=== PATIENT | male | born 1980 | race Caucasian/White ===

== ENCOUNTER 2021-09-02 07:24 | Outpatient (REF) | payer OTHER, SELFPAY ==
--- NOTE | ~2021-09-02 | CT_ITS ---
EXAMINATION: CT SINUS WITHOUT CONTRAST CLINICAL INFORMATION: Deviated septum. COMPARISON: None TECHNIQUE: 2 mm thin axial and reformatted 2 mm thin sagittal and coronal images of sinuses were obtained. This CT examination was performed using dose optimization techniques as appropriate, variously including the following: *Automated exposure control *Adjustment of mA and/or kV according to patient size (this includes techniques or standardized protocols for targeted exams where dose is matched to indication/reason for exam; i.e. extremities or head) *Use of iterative reconstruction technique DLP: 93 mGy-cm FINDINGS: FRONTAL SINUSES AND DRAINAGE PATHWAYS: The frontal sinuses are hypoplastic and not visualized. The ostiomeatal complex appears patent. MAXILLARY SINUSES AND DRAINAGE PATHWAYS: There is minimal mucoperiosteal thickening along the roof of bilateral maxillary sinuses. There is a small polyp or retention cyst in the floor of the left maxillary sinus. No air-fluid levels seen. The infundibula are patent. ETHMOID SINUSES: Normal. The ethmoid roofs are symmetric, with olfactory fossa depth of 0.3 on the right and 0.4 on the left. SPHENOID SINUSES AND DRAINAGE PATHWAYS: There is a mild mucoperiosteal thickening right sphenoid sinus. The left sphenoid sinus is clear. The sphenoid ostia are patent. The carotid canals are covered by bone. NASAL CAVITY/NASOPHARYNX: The nasal cavity is clear. There is hypertrophic right middle and inferior turbinates, likely part of the physiological cycle. There is no nasal septal deviation/spurring. The nasopharynx is symmetric. ADDITIONAL RELEVANT FINDINGS: No periapical disease is seen. The TMJs articulate normally. The orbits and skull base soft tissues are unremarkable. The middle ear cavities and mastoid air cells are clear. Limited evaluation demonstrates no acute intracranial findings. CT/CT sinus wo con IMPRESSION: Minimal bilateral maxillary and right sphenoid sinus inflammatory changes. There is a small polyp or retention cyst, left maxillary sinus.
== END 2021-09-02 07:25 | disposition home or self-care (01) ==
LOC: HO.CT 07:24
PROVIDERS: Visit Provider Otolaryngology
DX: J34.2 Deviated nasal septum (principal); J32.8 Other chronic sinusitis; J33.9 Nasal polyp, unspecified
CPT/HCPCS: 70486

== ENCOUNTER 2024-12-24 07:20 | Emergency (ER) | payer BC, SELFPAY ==
--- OUTSIDE RECORDS SUMMARY | 2023-08-31 09:00 | XMS_ITS ---
Author Organization [facility] Address [address] [place] [id number] Care Team Providers Care Vending Stand Supervisor Name Role Phone Roosevelt TIJERINA, [place] Primary Care Provider Unav ailable Sergio Bangura Unavailable [phone] Madison Obando Unavailable [phone] Problems No Known Problems Encounters Encounter Location Date Provider Diagnosis [facility] [address] [place] [address] 08/31/2023 Madison Obando Plan Of Treatment No Information Progress Notes * Pranay ORRDOB:1980 (44 yo M)Acc No.[id number]:08/31/2023 Progress Notes Patient: Pranay BURKS Provider: Sarahi Obando DPM :1980 A ge:42 Y S ex:Male Date:08/31/2023 Address:[address] [place], [place] [id number] Pcp:Mich Albert MD Subjective: * Chief Complaints: * * Medical History: Objective: * Vitals: Assessment: Plan: * Treatment: * Images: * The named appointment provid er may or may not be the originator of this progress note, and it is not deemed complete until electronically signed by the appointment provider. Sign off status: Pending * Provider: Sarahi Obando DPM Date: 0 08/31/2023 Generated for Ranjeet preston/James/eTransmitting on: 0 12/24/2024 07:49 AM EDT
--- OUTSIDE RECORDS SUMMARY | 2023-09-08 09:00 | XMS_ITS ---
Author Organization [facility] Address [address] [place] [address] Care Team Providers Care Replanter Name Role Phone Roosevelt TIJERINA, [place] Primary Care Provider Unav ailable Sergio Bangura Unavailable [phone] Problems No Known Problems Encounters Encounter Location Date Provider Diagnosis [facility] [address] [address] 09/08/2023 Sergio Bangura Plan Of Treatment No Information Progress Notes * Pranay ORRDOB:1980 (44 yo M)Acc No.[id number]:09/08/2023 Progress Notes Patient: Pranay BURKS Provider: Dre Bangura DPM :1980 A ge:43 Y S ex:Male Date:09/08/2023 Address:[address] [place], [place] [id number] Pcp:Mich Albert MD Subjective: * Chief Complaints: * * Medical History: Objective: * Vitals: Assessment: Plan: * Treatment: * Images: * The named appointment provid er may or may not be the originator of this progress note, and it is not deemed complete until electronically signed by the appointment provider. Sign off status: Pending * Provider: Dre Bangura DPM Date: 09/08/2023 Generated for Ranjeet preston/James/Kitty[place]itting on: 12/24/2024 07:49 AM EDT
--- NOTE | ~2024-12-24 | CT_ITS ---
EXAMINATION: CT ABDOMEN AND PELVIS WITH CONTRAST CLINICAL INFORMATION: Right upper quadrant abdominal pain. COMPARISON: Correlated to ultrasound abdomen limited December 24, 2024. TECHNIQUE: Multidetector volumetric images were obtained from the superior aspect of the liver through the pubic symphysis following administration 85 mL of Omnipaque 350 intravenous contrast. Sagittal and coronal reformatted images were obtained on the technologist's workstation. Oral contrast: No This CT examination was performed using dose optimization techniques as appropriate, variously including the following: *Automated exposure control *Adjustment of mA and/or kV according to patient size (this includes techniques or standardized protocols for targeted exams where dose is matched to indication/reason for exam; i.e. extremities or head) *Use of iterative reconstruction technique DLP: 539 mg centimeter. FINDINGS: LUNG BASES: No gross acute airspace disease or discrete pulmonary nodules. LIVER, GALLBLADDER, AND BILIARY TREE: Liver measures 15 cm. There are multifocal, different sizes, round and ovoid shaped hypodense lesions throughout the parenchyma, the largest measures 1.9 cm in the posterior upper right hepatic lobe measuring 7 Hounsfield units. Main portal veins, hepatic veins and intrahepatic portion of the IVC are patent. No intrahepatic biliary ductal dilatation. Gallbladder is fluid-filled without pericholecystic fluid collection or gallbladder wall thickening. There is no distention. Common bile duct measures 4 mm. PANCREAS: No focal mass. No peripancreatic fluid collection. No main pancreatic ductal dilatation. SPLEEN: 10 cm. No focal mass. Punctate calcification, likely granuloma ADRENAL GLANDS: No nodular lesions. KIDNEYS AND URETERS: No adrenal mass. No hydronephrosis. No gross masses. BLADDER: Fluid-filled. GASTROINTESTINAL TRACT: Diffuse concentric wall thickening involving mostly the large intestine and to a lesser extent distal ileal loops. Gas and fluid-filled mildly prominent small bowel loops. No intestinal obstruction pattern. No pneumatosis intestinalis. Appendix is normal and retrocecal. Small hiatal hernia. No ascites. No peripheral enhancing fluid collections in the peritoneal cavity. No gross colonic diverticulum. No pneumoperitoneum. ABDOMINAL WALL: Small fat-containing umbilical hernia. LYMPH NODES: Nonspecific prominent mesenteric and retroperitoneal and inguinal lymph nodes. VASCULAR: Mixed plaques throughout the total abdominal aorta wall and iliac arteries. No aneurysm or dissection, abdominal aorta. Calcified plaques in the coronary arteries. PELVIC VISCERA: Status post vasectomy, bilaterally. Prostate gland is not enlarged. OSSEOUS STRUCTURES: Spondylosis, L5-S1. No acute fracture or gross listhesis. Mild degenerative changes in the hips symphysis pubis. CT/CT abdomen pelvis w IV con IMPRESSION: Concerning acute inflammatory bowel disease such as Crohn's disease versus ulcerative colitis. Multifocal different sizes cystic lesions, liver. Small fat-containing umbilical hernia. Atherosclerosis disease and likely coronary artery disease. Spondylosis, L5-S1. Fleischner guidelines were followed. Electronically signed by: Chin Carey MD 12/24/2024 10:53 AM EDT
--- NOTE | ~2024-12-24 | US_ITS ---
EXAMINATION: US ABDOMEN LIMITED HISTORY: RUQ pain, eval at [facility] with stones 5 weeks ago, TECHNIQUE: Real-time grayscale ultrasound imaging of the gallbladder was performed and images were reviewed. COMPARISON: There are no prior studies available for comparison. FINDINGS: The gallbladder is unremarkable, without evidence of calculi, wall thickening, or pericholecystic fluid. There is no sonographic Gore sign. The common bile duct is normal in caliber measuring 7 mm. US/US abdomen limited IMPRESSION: Unremarkable ultrasound of the gallbladder. No evidence of cholelithiasis. Electronically signed by: Shiraz Escobedo MD 12/24/2024 09:31 AM EDT
[2024-12-24 07:27] VITALS: BP 126/87; PULSE 71; RESP 16; TEMP 36.7; O2SAT 95; BMI 26.3
[2024-12-24 07:31] VITALS: BP 126/91; PULSE 74; RESP 16; O2SAT 98
--- NOTE | 2024-12-24 07:42 | ED_ITS ---
HPI - Abdominal Pain General Chief Complaint: Abdominal Pain Stated Complaint: abd pain, n/v/d Time Seen by Provider: 12/24/24 07:41 Mode of arrival: ambulatory Limitations: no limitations History of Present Illness ED Provider: EMIR Soares HPI narrative: 44-year-old male with medical history of asthma presents to the ED due to 5 weeks of progressively worsening right upper quadrant pain. Patient states RUQ pain is worse after eating, is associated with nausea and bloating, with pain radiating to R shoulder blade. Patient states he went to urgent Care approximately 5 weeks ago when his symptoms started and was given a GI cocktail of Maalox and lidocaine which did not alleviate the pain and was recommended to go to ED for further workup. Patient states he went to [facility] that same day and was told there is evidence of gallstones and discharged. Patient states over the last 3 days pain has been significantly increasing. Patient states he has had multiple episodes of vomiting after eating with increased pain and discomfort. Patient states last night he experienced subjective fever with chills, and cold sweats that lasted for about 1-2 hours. Related Data Previous Rx's ?Medication ?Instructions ?Recorded ondansetron HCl 4 mg tablet 4 mg PO Q8H PRN nausea and 12/24/24 vomiting #15 tabs Allergies Allergy/AdvReac Type Severity Reaction Status Date / Time Penicillins Allergy Hives Verified 12/24/24 07:29 Review of Systems Review of Systems CONST: Negative for fever, body aches and chills. HENT: Negative for neck pain/stiffness, headache, congestion, sore throat, swelling. EYES: Negative for discharge/pain or vision changes. RESP: Negative for cough/hemoptysis and shortness of breath. CV: Negative chest pain, difficulty breathing, palpitations. ABD: Negative nausea, vomiting. POS RUQ pain : Negative increase frequency, dysuria, blood in urine or stool. MUSC: Negative for muscle aches, edema. SKIN: Negative rash, lesions/sores. NEURO: Negative headache, dizziness, weakness. Yes all other systems are reviewed and are negative [facility] Past Medical History Attestation statement: The following information was validated with the patient. Source: old records reviewed and nursing notes reviewed Social History Social History Smoked in Last 30 Days: No Use of substances other than those prescribed or required for medical reasons: No Advance Directives: No Advance Directives Information Provided: No Physical Exam ED Vital Signs: Vital Signs - 24 hr 12/24/24 07:27 12/24/24 07:31 12/24/24 08:27 Temperature 98.1 F 98.1 F Pulse Rate 71 74 74 Respiratory Rate 16 16 16 Blood Pressure 126/87 126/91 H 126/91 H Pulse Oximetry 95 98 99 Oxygen Delivery Method Room Air Room Air Room Air 12/24/24 11:30 Temperature 98 F Pulse Rate 70 Respiratory Rate 16 Blood Pressure 126/81 Pulse Oximetry 99 Oxygen Delivery Method Room Air BMI result Body Mass Index 26.3 GENERAL APPEARANCE: ?AxOx4 no acute distress. HEENT: ?NC, AT. MMM. EOMI, clear conjunctiva, oropharynx clear. NECK: ?Supple without lymphadenopathy.? No stiffness or restricted ROM. HEART:? Normal rate and regular rhythm, normal S1/S2, no m/r/g LUNGS:? CTAB, moving air well. No crackles or wheezes are heard. ABDOMEN: ?Soft, nondistended, no rigidity, significant TTP of the RUQ, positive Gore's sign, no rebound tenderness, no overlying skin changes BACK: No CVAT, no obvious deformity. EXTREMITIES: ?Without cyanosis, clubbing or edema. NEUROLOGICAL: ?Grossly nonfocal. Alert and oriented, moving all 4 extremities. Observed to ambulate with normal gait. Skin: ?Warm and dry without any rash. Course Reevaluation(s) Reevaluation #1: U/S abdomen negative for calculi, wall thickening or pericholecystic fluid, negative sonographic Gore's sign. Common bile duct is normal in caliber. These findings were discussed with the patient. Due to patient having 5 weeks of persistent right upper quadrant pain, with no imaging done at [facility] we will obtain CT abdomen and pelvis to rule out any other acute abdominal pathology. Time: 09:54 Medical Decision Making Medical Decision Making MDM Narrative: 44-year-old male with medical history of asthma with 5 weeks of progressively worsening right upper quadrant pain that he describes as a constant dull ache that is worse after eating, and is associated with nausea, vomiting and bloating, and radiates to R shoulder blade. Pain has been worsening over the last 3 days, with subjective fever, chills and cold sweats that lasted approximately 2 hours last night. Was seen at [facility] approximately 5 weeks ago when symptoms first started and was told he had gallstones and discharged. Plan: Labs, UA, US abdomen Labs without leukocytosis/leukopenia, H&H stable, total bilirubin elevated at 1.4, no electrolyte abnormalities. U/S abdomen unremarkable with patent common bile duct. CT abdomen and pelvis reveals multifocal round, and ovoid shaped hypodense lesions throughout the liver with the largest measuring 1.9 cm in the posterior upper right lobe. Concerning acute inflammatory bowel disease such as Chron's VS ulcerative colitis. I reached out to Dr. Dela Cruz on these findings who agree patient is appropriate for follow up with PCP and GI. Patient being referred to GI. Labs without leukocytosis, LFT's WNL with exception of total bilirubin which is mildly elevated at 1.4. No evidence of biliary tree obstruction. Hemodynamically stable, afebrile, no history of IVDU. Patient well for home care. Patient has follow up with PCP and has GI referal from his PCP in March. I conseled patient on strict return precautions. Patient is in agreement with the plan. Differential Diagnosis Differential Diagnoses: The differential diagnosis associated with the presentation includes Cholelithiasis Choledocholithiasis Cholecystitis Cholangitis Biliary colic Admission/Observation Consideration of admission/observation: Escalation of care including admission/observation considered Lab Data MDM Lab Attestation statement: I reviewed the patient's lab results. 12/24/24 07:40 12/24/24 07:40 Labs: Lab Results 12/24/24 12/24/24 Range/Units 07:40 11:59 WBC 5.7 (4.8-10.8) X10*3/uL RBC 5.47 (4.60-5.80) X10*6/uL Hgb 16.2 (14.0-18.0) g/dl Hct 46.7 (42.0-52.0) % MCV 85.4 (80.0-98.0) fL MCH 29.6 (27.0-33.0) pg MCHC 34.7 (31.0-36.0) g/dl RDW 12.5 (11.0-16.0) % Plt Count 206 (160-400) X10*3/uL MPV 9.3 L (9.4-12.4) fL Immature Gran % (Auto) 0.2 (0.0-0.4) % Neut % (Auto) 71.4 (45-73) % Lymph % (Auto) 17.8 L (20-40) % Gibson % (Auto) 9.4 (2-11) % Eos % (Auto) 0.9 (0-4) % Baso % (Auto) 0.3 (0-2) % Lymph # (Auto) 1.0 L (1.2-4.9) X10*3/uL Gibson # (Auto) 0.5 (0.1-1.2) X10*3/uL Eos # (Auto) 0.1 (0.0-0.4) X10*3/uL Baso # (Auto) 0.0 (0.0-0.2) X10*3/uL Abs Immat Gran (auto) 0.01 (0.00-0.03) X10*3/uL Absolute Neuts (auto) 4.1 (2.0-8.3) x10*3/uL Absolute Nucleated RBC 0.000 (0.0-0.012) X10*3/uL Nucleated RBC % (auto) 0.0 (0.0-0.2) /100WBC Sodium 140 (135-145) mmol/L Potassium 4.0 (3.3-5.1) mmol/L Chloride 104 (96-108) mmol/L Carbon Dioxide 27 (22-29) mmol/L Anion Gap 13 (12-20) BUN 16 (9-16) mg/dL Creatinine 1.32 (0.5-1.4) mg/dL Estim Creat Clear Calc 74.4 Estimated GFR 58 Random Glucose 102 (60-115) mg/dL Calcium 9.6 (8.4-10.2) mg/dL Total Bilirubin 1.4 H (0.0-1.0) mg/dL AST 22 (5-37) U/L ALT 21 (0-40) U/L Alkaline Phosphatase 64 (39-117) U/L Total Protein 7.5 (6.5-8.0) g/dL Albumin 4.8 (3.5-5.0) g/dL Lipase 15 (8-78) U/L Urine Color Yellow Urine Appearance Clear Urine pH 7.0 (5.0-9.0) Ur Specific Muldoon >= 1.030 H (1.005-1.025) Urine Protein Negative (Neg-Trace) mg/dL Urine Glucose (UA) Negative (Negative) mg/dL Urine Ketones Negative (Negative) mg/dL Urine Blood Negative (Negative) Urine Nitrite Negative (Negative) Ur Leukocyte Esterase Negative (Negative) Independent Interpretation I performed an independent interpretation of an: Ultrasound Radiology Impression Discussion of test interpretation with radiology: I have reviewed the radiologist's reading. Radiologist Impression: U/S abdomen External Record Review External record reviewed: Inpatient record, Office record and Outpatient record Chronic Conditions Patient?s care impacted by: Other (Asthma) Medications Administered Discontinued Medications Generic Name Dose Route Start Last Admin Trade Name Freq PRN Reason Stop Dose Admin Lactated Ringer's 1,000 mls @ 999 mls/hr 12/24/24 07:59 12/24/24 09:15 Lr IV 12/24/24 08:59 Infused .Q1H1M ONE Infusion Acetaminophen 1,000 mg in 100 mls @ 400 mls/hr 12/24/24 07:59 12/24/24 08:36 Ofirmev IV 12/24/24 08:13 Infused ONCE ONE Infusion Iohexol 100 ml 12/24/24 10:32 12/24/24 10:33 Iohexol 350 Mg/Ml 100 Ml Infus..Btl IV 12/24/24 10:33 85 ml ONCE ONE Administration Discharge Plan Discharge Clinical Impression: Abdominal pain Patient Disposition: Home, Self-Care Instructions: Abdominal Pain (ED) Additional Instructions: You were evaluated in the ED today due to abdominal pain. Your lab work is reassuring as there is no elevation in your white blood cell counts. The ultrasound of your abdomen was normal. The CT scan of your abdomen revealed multiple cysts on the liver with the largest measuring 1.9 cm, with concern of acute inflammatory bowel disease such as Crohn's versus ulcerative colitis. Additionally, you were found to have a small fat containing umbilical hernia, and arthrosclerosis disease with likely coronary artery disease. Please follow up with your primary care doctor on these findings. I am placing a referral to GI for you, call their office as they will not call you. Additionally, please follow up with your primary care doctor. You are being prescribed Zofran to manage nausea at home. Please return to the emergency department if you experience fevers over 100.4?, blood or mucus in the stool, worsening abdominal pain, worsening nausea and vomiting, chest pain, shortness of breath or any new/worsening/concerning symptoms. Prescriptions: New ondansetron HCl 4 mg tablet 4 mg PO Q8H PRN (Reason: nausea and vomiting) Qty: 15 0RF Referrals: [facility] [place] [facility] [Provider Group, Gastroenterology] Print Language: Welsh
--- NOTE | 2024-12-24 07:42 | PC.NURSE ---
Patient is a 44 yo male who presents with epigastric pain for the past 4-5 weeks with assoc nausea and anorexia. Was evaluated at [facility] ED and treated for GERD, also states ? gall stones. Alert and oriented. Lungs clear bilat. Respirations even and non-labored. Abdomen flat, soft with hypoactive bowel sounds. c/o epigastric pain with some tenderness noted. Positive pedal pulses with no edema.
[2024-12-24 07:45] LABS: Hematocrit 46.7 % (42.0-52.0); Hemoglobin 16.2 g/dl (14.0-18.0); Imm Gran Abs Auto 0.01 X10*3/uL (0.00-0.03); Imm Gran Pct Auto 0.2 % (0.0-0.4); Lymphocytes Absolute Auto 1.0 X10*3/uL (1.2-4.9); MANUAL DIFF FLAG NO; Mean Corpuscular HGB Conc 34.7 g/dl (31.0-36.0); Mean Corpuscular Hemoglobin 29.6 pg (27.0-33.0); Mean Corpuscular Volume 85.4 fL (80.0-98.0); NRBC Abs Auto 0.000 X10*3/uL (0.0-0.012); NRBC Pct Auto 0.0 /100WBC (0.0-0.2); Platelet Count 206 X10*3/uL (160-400); Red Blood Count 5.47 X10*6/uL (4.60-5.80); White Blood Count 5.7 X10*3/uL (4.8-10.8)
--- OUTSIDE RECORDS SUMMARY | 2024-12-24 07:50 | XMS_ITS | Patient Health Record ---
[facility] Address [address] [place] [address] Care Team Providers Care Customer Service Driver Name Role Phone Mich Albert MD Primary Care Provider Unav ailable Sveta Sergio Unavailable [phone] Allergies Allergen (clinical drug ingredient) Drug/Non Drug Allergy documented on EMR Reaction Allergy Type Onset Date Status Penicillin Unknown Drug Allergy Active Reason For Referral No Information Medications Medication SIG (Take, Route, Frequency, Duration) Notes Start Date End Date Status Verapamil HCl ER Act karmen Diclofenac Sodium 75 MG TAKE 1 TABLET TW ICE A DAY Oral; Duration: 30 Active ProAir HFA 108 (90 Base) MCG/ACT INHALE 2 PUFFS BY MOUTH EVERY 4 TO 6 HOURS NEEDED FOR COUGH/WHEEZE Inhalation; Duration: 27 Active CeleXA Active Advair Diskus 250-50 MCG/DOSE INHALE 1 PUFF BY MOUTH TWICE DAILY FOR 30 DAYS Inhalation; Duration: 30 Active Social History Tobacco use other than smoking: Question Answer Notes Are you an other tobacco user? No Problems No Known Problems Plan Of Treatment Pending Test Test Name Order Date 41912- Debride <25 sq cm 02/28/2014 67972- Debride <25 sq cm 05/02/2014 16008- Debride <25 sq cm 07/08/2014 99270- Debride <25 sq cm 09/26/2014 Insurance Providers Payer Name Payer Address Payer Phone Subscriber Number Group Number Insured Name Patient Relationship to Insured Coverage Start Date Coverage End Date [facility] [address] [place] [address] [id number] Pranay Orr Self - patient is the insured Medical (General) History Medical History History ICD Code asthma Back,Hip,and Knee pain Surgical History Surgery Date(Month/Year) ankle surgery 2007 vasectomy 2007 wisdom teeth extraction 2000
--- OUTSIDE RECORDS SUMMARY | 2024-12-24 07:50 | XMS_ITS | Clinical Summary ---
Author Organization [facility] Address [address] [place] [phone] Phone Care Team Providers Care Junior Accountant Name Role Phone Mich Albert MD Primary Care Provid er Allergies Active Allergy Reactions Criticality Noted Date Comments Adhesive Tape-Silicones Rash Low 06/18/2013 Penicillins Hives 06/18/2013 Medications albuterol (PROAIR HFA) 90 mcg/actuation inhaler ProAir HFA 90 mcg/actuatio n aerosol inhaler Active Active Problems No known active problems Encounters Date Type Department Care Team Description 11/30/2024 5:10 PM EDT - 11/30/2024 5:13 PM EDT Emergency [facility] [address] [place] [address] Discharge Disposition: Left Without Being Seen from Last 3 Months Social History Tobacco Use Types Packs/Day Years Used Date Smoking Tobacco: Never Smokeless Tobacco: Never Alcohol Use Standard Drinks/Week Comments Never 0 (1 standard drink = 0.6 oz pur e alcohol) Education Answer Date Recorded Are you interested in more education? Not on caroline e 07/23/2022 Are you concerned about learning? Not on file 07/23/2022 No 07/23/2022 No 07/23/2022 Digital Access Answer Date Recorded No 08/20/2022 No 08/20/2022 Reliable internet access at home? Not on file 08/20/2022 Device with a working camera? Not on file Intimate Partner Violence Answer Date R ecorded Are you denied basic needs s uch as food, clothing, or medical care? No 11/30/2024 In the past 12 months have y ou been in a relationship with a person who hurts, threatens, or tries to control you? No 11/30/2024 Are you denied basic needs s uch as food, clothing, or medical care? No 11/30/2024 In the past 12 months have y ou been in a relationship with a person who hurts, threatens, or tries to control you? No 11/30/2024 Sex and Gender Information Value Date Recorded Sex Assigned at Not on file Legal Sex Male 9:24 PM EDT Gender Identity Not on file Sexual Orientation Not on file Last Filed Vital Signs Vital Sign Reading Time Taken Comments Blood Pressure 130/87 11/30/2024 3:28 PM EDT Pulse 66 11/30/2024 3:28 PM EDT Temperature 36.8 C (98.2 F) 11/30/2024 3:28 PM EDT Respiratory Rate 16 11/30/2024 3:28 PM EDT Oxygen Saturation 98% 11/30/2024 3:28 PM EDT Inhaled Oxygen Concentration - - Weight 86.2 kg (190 lb) 11/30/2024 10:24 AM EDT Height 180.3 cm (5' 11 ) 11/30/2024 10:24 AM EDT Body Mass Index 26.5 11/30/2024 10:24 AM EDT Plan of Treatment Upcoming Encounters Date Type Department Care Team (Late st Contact Info) Description 04/01/2025 8:30 AM EST Office Visit [facility] [address] [place] [address] Unknown, Unknown, Trish Acosta PA [address] [place] [address] Health Maintenance Due Date Last Done Comments LIPID PANEL 1978 DEPRESSION SCREENING 1990 HEPATITIS C SCREENING 1996 HIV ONE-TIME SCREENING (18-6 5 YEARS) 1996 COLOGUARD 09/08/2023 COLONOSCOPY 09/08/2023 COLORECTAL CANCER SCREENING 09/08/2023 FIT TEST 09/08/2023 FOBT 09/08/2023 SIGMOIDOSCOPY 09/08/2023 VIRTUAL COLONOSCOPY 09/08/2023 INFLUENZA VACCINE (#1) 2024 , 03/02/2010, 12/17/2008 COVID-19 VACCINE (3 - 2024-2 6 season) 2024 11/10/2020, 10/20/2020 SCREENING FOR DIABETES 12/01/2027 11/30/2024 Adult Td,Tdap Booster 04/09/2029 04/09/2019 , 07/03/2009, 11/22/2008 SMOKING STATUS SCREENING (On ce After 26 Yrs) Completed 11/30/2024 HEPATITIS A VACCINES Aged Out No long er eligible based on patient's age to complete this topic HIB VACCINES Aged Out No longer eligi ble based on patient's age to complete this topic MENINGOCOCCAL VACCINES (ACWY) Aged Out No longer eligible based on patient's age to complete this topic MENINGOCOCCAL VACCINES (B) Aged Out N o longer eligible based on patient's age to complete this topic PNEUMOCOCCAL VACCINES (0-49 years) Aged Out No longer eligible b ased on patient's age to complete this topic Medical Devices Not on file Procedures Procedure Name Priority Date/Time Associated Diagnosis Comments LIPASE STAT 11/30/2024 10:47 AM EDT LFTS (HEPATIC PANEL) STAT 11/30/2024 10:47 AM EDT BASIC METABOLIC PANEL STAT 11/30/2024 10:47 AM EDT CBC AND DIFFERENTIAL STAT 11/30/2024 10:47 AM EDT ECG 12-LEAD STAT 11/30/2024 10:28 AM EDT from Last 3 Months Results * (ABNORMAL) LFTs (hepatic panel) (11/30/2024 10:47 AM EDT) ALKALINE PHOSPHATASE 66 39 - 117 U/L [facility] TOTAL BILIRUBIN 1.2 0.0 - 1.2 mg/dL [facility] DIRECT BILIRUBIN 0.2 0.0 - 0.2 mg/dL [facility] Bilirubin (Indirect) 1.0 0 - 1.5 mg/dL [facility] AST 22 0 - 37 U/L [facility] ALT 30 0 - 40 U/L [facility] TOTAL PROTEIN 7.7 6.5 - 8.0 g/dL [facility] ALBUMIN 4.9(H) 3.9 - 4.8 g/dL [facility] GLOBULIN 2.8 1 - 4.8 g/dL [facility] A/G Ratio 1.75 1.00 - 4.80 RATIO [facility] Blood 11/30/2024 10:4 7 AM EDT 11/30/2024 11:01 AM EDT us Marquis Radford MD LAB BLOOD ORDERAB LES Final Result Performing Organization Address City/State/[facility] Co de Phone Number [facility] [address] [place] [address] * CBC and differential (11/30/2024 10:47 AM EDT) WBC 5.35 4.00 - 11.00 K/uL [facility] RBC 5.67 4.50 - 5.90 M/uL [facility] HGB 16.6 13.5 - 17.5 g/dL [facility] HCT 49.1 41.0 - 53.0 % [facility] PLT 230 150 - 450 K/uL [facility] MCV 86.6 80.0 - 100.0 fL [facility] MCH 29.3 27.0 - 31.0 pg [facility] MCHC 33.8 32.0 - 36.0 g/dL [facility] RDW 12.6 11.5 - 14.5 % [facility] MPV 9.2 8.4 - 12.0 fL [facility] NRBC 0.00 0.00 /100 WBCs [facility] ABSOLUTE NRBC 0.00 0.00 K/uL [facility] DIFF METHOD Auto [facility] NEUTS 59.8 48.0 - 76.0 % [facility] LYMPHS 29.9 18.0 - 41.0 % [facility] MONOS 7.5 4.0 - 11.0 % [facility] EOS 1.9 0.0 - 5.0 % [facility] BASOS 0.7 0.0 - 1.5 % [facility] Granulocytes, immature (%) 0.2 0.0 - 0.9 % [facility] ABSOLUTE NEUTS 3.20 1.92 - 7.60 K/uL [facility] ABSOLUTE LYMPHS 1.60 0.72 - 4.10 K/uL [facility] ABSOLUTE MONOS 0.40 0.16 - 1.10 K/uL [facility] ABSOLUTE EOS 0.10 0.00 - 0.50 K/uL [facility] ABSOLUTE BASOS 0.04 0.00 - 0.15 K/uL [facility] Granulocytes, immature 0.01 0.00 - 0.09 K/uL [facility] Blood 11/30/2024 10:4 7 AM EDT 11/30/2024 11:01 AM EDT us Marquis Radford MD LAB BLOOD ORDERAB LES Final Result Performing Organization Address City/[facility]/ZIP Co de Phone Number [address] [address] * Lipase (11/30/2024 10:47 AM EDT) LIPASE 16 16 - 63 U/L [facility] Blood 11/30/2024 10:4 7 AM EDT 11/30/2024 11:01 AM EDT Marquis Radford MD LAB BLOOD ORDERAB LES Final Result [address] [address] * Basic metabolic panel (11/30/2024 10:47 AM EDT) SODIUM 136 133 - 146 mmol/L [facility] CHLORIDE 100 96 - 108 mmol/L [facility] POTASSIUM 3.7 3.3 - 5.1 mmol/L [facility] CO2 26 21 - 35 mmol/L [facility] BUN 12 6 - 19 mg/dL [facility] CREATININE 1.00 0.5 - 1.5 mg/dL [facility] GLUCOSE 80 70 - 99 mg/dL [facility] CALCIUM 9.5 8.4 - 10.3 mg/dL [facility] EGFR 94 >59 mL/min/1.7 3m2 [facility] Comment:Estimated glomerular filtration rate calculated using the CKD-EPI refit equation. ANION GAP 14 10 - 20 mmol/L [facility] Blood 11/30/2024 10:4 7 AM EDT 11/30/2024 11:01 AM EDT us Marquis Radford MD LAB BLOOD ORDERAB LES Final Result Performing Organization Address [facility] Co de Phone Number [facility] [address] [place] [address] * ECG 12-LEAD (11/30/2024 10:28 AM EDT) Ventricular Rate EKG/MIN 63 BPM [facility] Atrial Rate 63 BPM [facility] RI Interval 170 ms [facility] QRS Duration 84 ms [facility] QT Interval 394 ms [facility] QTC Interval 403 ms [facility] P [place] 44 degrees [facility] R Wave [place] -20 degrees [facility] T Wave [place] 14 degrees [facility] 11/30/2024 10:2 8 AM EDT 12/01/2024 10:27 AM EDT Narrative [facility] - 12/01/2024 10:27 AM EDT Normal sinus rhythm Minimal voltage criteria for LVH, may be normal variant Borderline ECG No previous ECGs available Confirmed by Bubba Gillespie ([id number]) on 12/01/2024 10:27:15 AM us Marquis Radford MD ECG ORDERABLES F inal Result [facility] from Last 3 Months Care Teams Junior Accountant Relationship Specialty Start Date End Date Mich Albert MD [address] [id number] PCP - General Internal Medicine 04/21/19 Additional Source Comments The information contained in this document represents components of the legal health record. It is not the complete legal health record.[facility]
--- OUTSIDE RECORDS SUMMARY | 2024-12-24 07:50 | XMS_ITS | Encounter Summary ---
Author Organization [facility] Address [address] [place] [phone] Phone Care Team Providers Care Health Underwriter Name Role Phone Mich Albert MD Primary Care Provid er Encounter Details Date Type Department Care Team (Late Contact Info) Description 03/18/2020 Ancillary Orders Virtual Department [address] [place] [address] Ellie West MD [address] [place] [address] [address] [place] [address] Cervicalgia Social History Tobacco Use Types Packs/Day Years Used Date Smoking Tobacco: Never Smokeless Tobacco: Never Alcohol Use Standard Drinks/Week Comments Never 0 (1 standard drink = 0.6 oz pur e alcohol) Sex and Gender Information Value Date Recorded Sex Assigned at Not on file Legal Sex Male 9:24 PM EDT Gender Identity Not on file Sexual Orientation Not on file documented as of this encounter Plan of Treatment Upcoming Encounters Date Type Department Care Team (Late Contact Info) Description 04/01/2025 8:30 AM EST Office Visit [facility] [address] [place] [address] Unknown, Unknown, Trish Acosta PA [address] [place] [address] documented as of this encounter Results * XR CERVICAL SPINE 4-5 VIEWS (03/24/2020 11:09 AM EST) Anatomical Region Laterality Modality C-spine Computed Radiogr aphy 03/24/2020 11:1 4 AM EST Impressions 03/24/2020 11:17 AM EST Moderate C5-6 and C6-7 disc disease and neural foraminal stenosis as above. Narrative 03/24/2020 11:17 AM EST HISTORY: As above. COMPARISON: None. CERVICAL SPINE RADIOGRAPH FINDINGS: 6 images obtained. No fracture or malalignment. Moderate C5-6 and C6-7 disc space narrowing with mild endplate spurring. Multilevel mild facet arthropathy. Mild right C5-6 and C6-7 neural foraminal stenosis and moderate left C5-6 neural foraminal stenosis due to spurring. No cervical ribs. No destructive or suspicious bone lesions. Prevertebral soft tissues are normal. Imaged lung apices are clear. Procedure Note Marquis Alonso MD - 03/24/2020 HISTORY: As above. COMPARISON: None. CERVICAL SPINE RADIOGRAPH FINDINGS: 6 images obtained. No fracture or malalignment. Moderate C5-6 and C6-7 disc space narrowingwith mild endplate spurring. Multilevel mild facet arthropathy. Mild rightC5-6 and C6-7 neural foraminal stenosis and moderate left C5-6 neuralforaminal stenosis due to spurring. No cervical ribs. No destructive orsuspicious bone lesions. Prevertebral soft tissues are normal. Imaged lungapices are clear. IMPRESSION: Moderate C5-6 and C6-7 disc disease and neural foraminal stenosis asabove. us Ellie West MD IMG XR SPINE Final R esult documented in this encounter Visit Diagnoses Diagnosis Cervicalgia Cervicalgia documented in this encounter Care Teams Health Underwriter Relationship Specialty Start Date End Date Mich Albert MD [address] [phone] PCP - General Internal Medicine 04/21/19 documented as of this encounter Additional Source Comments The information contained in this document represents components of the legal health record. It is not the complete legal health record.[facility]
[2024-12-24 08:07] LABS: Alanine Aminotransferase 21 U/L (0-40); Albumin Level 4.8 g/dL (3.5-5.0); Alkaline Phosphatase 64 U/L (39-117); Anion Gap 13 (12-20); Aspartate Amino Transferase 22 U/L (5-37); Blood Urea Nitrogen 16 mg/dL (9-16); Calcium 9.6 mg/dL (8.4-10.2); Carbon Dioxide 27 mmol/L (22-29); Chloride 104 mmol/L (96-108); Creatinine Clr Calc Pharmacy 74.4; Estimated Glomerular Filt Rate 58; Lipase 15 U/L (8-78); Potassium 4.0 mmol/L (3.3-5.1); Sodium 140 mmol/L (135-145); Total Protein 7.5 g/dL (6.5-8.0)
[2024-12-24] MEDS: Lactated Ringers 1,000 ML 999 ML IV (08:14)
[2024-12-24 08:27] VITALS: BP 126/91; PULSE 74; RESP 16; TEMP 36.7; O2SAT 99
[2024-12-24] MEDS: iohexoL 350 MG/ML 100 ML INFUS..BTL IV (10:33)
[2024-12-24 11:30] VITALS: BP 126/81; PULSE 70; RESP 16; TEMP 36.6; O2SAT 99
[2024-12-24 12:08] LABS: Appearance Urine Clear; Glucose Urine UA Negative (Negative); PH 7.0 (5.0-9.0); Specific Gravity - Urine >= 1.030 (1.005-1.025)
[2024-12-24 12:55] VITALS: BP 126/81; PULSE 70; RESP 16; TEMP 36.6; O2SAT 99
== END 2024-12-24 12:57 | disposition home or self-care (01) ==
PROVIDERS: Emergency Provider Emergency Medicine; PCP Internal Medicine
DX: R10.11 Right upper quadrant pain (principal); K76.89 Other specified diseases of liver; K42.9 Umbilical hernia without obstruction or gangrene; J45.909 Unspecified asthma, uncomplicated; Z79.899 Other long term (current) drug therapy
CPT/HCPCS: 36415; 74177; 76705; 80053; 81003; 83690; 85025; 96361; 96374; 99285; J0131; J7120; Q9967

== ENCOUNTER → 2024-12-24 07:59 | Outpatient (BNV) | payer BC, SELFPAY | PROVIDERS: Emergency Provider Emergency Medicine; PCP Internal Medicine; Visit Provider Radiology Diagnostic Radiology | DX: K40.90 Unilateral inguinal hernia, without obstruction or gangrene, not specified as recurrent (principal); K76.89 Other specified diseases of liver; M47.817 Spondylosis without myelopathy or radiculopathy, lumbosacral region; R10.11 Right upper quadrant pain; I70.90 Unspecified atherosclerosis | CPT/HCPCS: 74177; 76705 ==